=== PATIENT | female | born 1990 | race Caucasian/White ===

== ENCOUNTER 2024-12-17 10:23 | Inpatient (IN) | payer OTHER ==
[~2024-12-17] VITALS: Ht 193 cm; Wt 64.9 kg
[2024-12-17 11:13] LABS: HEMATOCRIT. 39.4 % (36.0-48.0); HEMOGLOBIN. 13.5 g/dL (12.0-16.0); MEAN CORPUSCULAR HEMOGLOBIN 26.3 pg (28.0-32.0); MEAN CORPUSCULAR HGB CONC 34.2 g/dL (31.0-37.0); MEAN CORPUSCULAR VOLUME 76.9 fL (81.0-99.0); MEAN PLATELET VOLUME 9.5 fl (7.4-10.4); PLATELET 213 x1000/uL (130-400); RED BLOOD CELL COUNT 5.12 mill/uL (4.2-5.4); RED CELL DISTRIBUTION WIDTH 13.3 % (11.6-14.6); WHITE BLOOD COUNT 15.9 x1000/uL (4.5-11.0)
[2024-12-17 11:21] LABS: CHLORIDE 100 mEq/L (98-107); POTASSIUM 3.3 mEq/L (3.5-5.1); SODIUM 134 mEq/L (136-145)
[2024-12-17 11:22] LABS: CALCIUM 9.3 mg/dL (8.7-10.4); CARBON DIOXIDE 25 mEq/L (21-32)
[2024-12-17] MEDS: SODIUM CHLORIDE 0.9% 1,000 ML IV ONE (11:22)
[2024-12-17] MEDS: METOCLOPRAMIDE HCL 10MG/2ML VIAL IV ONE (11:22)
[2024-12-17 11:25] LABS: DIFFERENTIAL COMMENT 1
[2024-12-17 11:27] LABS: CREATININE 0.7 mg/dL (0.6-1.0); GLUCOSE 130 mg/dL (70-105); UREA NITROGEN BLOOD 8 mg/dL (9-23)
[2024-12-17] MEDS: KETOROLAC 30MG/ML VIAL IV STA (11:54)
[2024-12-17 11:55] LABS: PLATELET ESTIMATE NORMAL
[2024-12-17] MEDS: PIPERACILLIN/TAZO 3.375G/50ML 50 ML IV ONE (12:20)
[2024-12-17] MEDS: SODIUM CHLORIDE 0.9% (SEPSIS BOLUS) IV ONE (12:32)
[2024-12-17] MEDS: VANCOMYCIN 1G PREMIX 200 ML IV ONE (13:24)
[2024-12-17] MEDS ORDERED: DOCUSATE SODIUM 100MG CAPSULE PO PRN (14:15)
[2024-12-17] MEDS ORDERED: CLONIDINE 0.1MG TABLET PO PRN (14:15)
[2024-12-17] MEDS ORDERED: IPRATROPIUM/ALBUTEROL 0.5-3(2.5)MG/3ML NEB NEB PRN (14:15)
[2024-12-17] MEDS ORDERED: GUAIFENESIN 200MG/10ML SUGAR FREE UDC PO PRN (14:15)
[2024-12-17] MEDS ORDERED: ONDANSETRON HCL 4MG/2ML INJ IV PRN (14:15)
[2024-12-17] MEDS ORDERED: ACETAMINOPHEN 325MG TABLET PO PRN ×2 (14:15)
[2024-12-17] MEDS ORDERED: MAGNESIUM/ALUMINUM HYDROXIDE/SIMETHICONE 30ML UDC PO PRN (14:15)
[2024-12-17] MEDS ORDERED: DIPHENHYDRAMINE 50MG/ML VIAL IV PRN (14:15)
[2024-12-17 14:38] LABS: PHOSPHORUS 2.9 mg/dL (2.5-4.9)
[2024-12-17] MEDS ORDERED: NOREPINEPHRINE 8MG/250ML PMX 250 ML IV ONE (15:06)
[2024-12-17 15:38] LABS: *AMPHETAMINES SCREEN URINE NEGATIVE (NEGATIVE); *BARBITURATES SCREEN URINE NEGATIVE (NEGATIVE); *BENZODIAZEPINES SCREEN URINE NEGATIVE (NEGATIVE); *COCAINE SCREEN URINE NEGATIVE (NEGATIVE); CANNABINOID URINE SCREEN NEGATIVE (NEGATIVE); ECSTASY MDMA SCREEN URINE NEGATIVE (NEGATIVE); METHADONE URINE SCREEN NEGATIVE (NEGATIVE); OPIATES URINE SCREEN NEGATIVE (NEGATIVE); PHENCYCLIDINE URINE SCREEN NEGATIVE (NEGATIVE)
[2024-12-17 15:40] LABS: CLARITY URINE CLEAR (CLEAR); COLOR URINE YELLOW (YELLOW); GLUCOSE URINE NEGATIVE (NEGATIVE); KETONES URINE NEGATIVE (NEGATIVE); LEUKOCYTE ESTERASE URINE NEGATIVE (NEGATIVE); NITRITE URINE NEGATIVE (NEGATIVE); OCCULT BLOOD URINE TRACE (NEGATIVE); PH URINE 5.5 (4.5-8.0); PROTEIN URINE NEGATIVE (NEGATIVE); SPECIFIC GRAVITY URINE 1.009 (1.005-1.030); UROBILINOGEN URINE 0.2 E.U./dL (0.2-1.0)
[2024-12-17 16:07] LABS: BACTERIA URINE TRACE; RBC URINE 0-2 /hpf (0-2); SQUAMOUS EPITHELIAL CELL URINE FEW /lpf (RARE/1+); WBC URINE 0-2 /hpf (0-2)
[2024-12-17 16:21] LABS: TROPONIN I HIGH SENSITIVITY 12 ng/L (3.0-34)
[2024-12-17] MEDS: SODIUM CHLORIDE 0.9% 1,000 ML IV SCH (17:28)
[2024-12-17] MEDS: NOREPINEPHRINE 8MG/250ML PMX 250 ML IV PRN (17:55)
[2024-12-17] MEDS ORDERED: CEFTRIAXONE 1GM/50ML 50 ML IV SCH (18:00)
[2024-12-17] MEDS: PANTOPRAZOLE SODIUM 40 MG/VIAL IV SCH (18:44)
[2024-12-17] MEDS: POTASSIUM CHLORIDE 20MEQ/PACKET PO NR (18:44)
[2024-12-17] MEDS: MAGNESIUM 2 G PREMIX 50 ML IV NR (18:45)
[2024-12-17 20:00] VITALS: BP 120/61; PULSE 81; RESP 16; TEMP 36.4; O2SAT 97
[2024-12-17 22:53] LABS: INFLUENZA TYPE A Presumptive Negative (Pres. Neg.); INFLUENZA TYPE B Presumptive Negative (Pres. Neg.)
[2024-12-17 22:54] LABS: RESPIRATORY SYNCYTIAL VIRUS Not Detected (Not Detectd)
[2024-12-18] VITALS (7 sets, daily range): BP systolic 98–120; BP diastolic 50–61; PULSE 64–81; RESP 16–20; TEMP 36.1–37.2; O2SAT 98–100
[2024-12-18] MEDS: VANCOMYCIN 750MG PREMIX 150 ML IV SCH ×2 (00:33→11:09)
[2024-12-18] MEDS: PIPERACILLIN/TAZO 3.375G/50ML 50 ML IV SCH (02:45)
[2024-12-18 05:27] LABS: BASOPHILS % 0.1 % (0.0-2.0); CARBON DIOXIDE 24 mEq/L (21-32); CHLORIDE 107 mEq/L (98-107); DIFFERENTIAL COMMENT 0; EOSINOPHILS % 0.6 % (0.0-5.0); HEMATOCRIT. 33.9 % (36.0-48.0); HEMOGLOBIN. 11.3 g/dL (12.0-16.0); LYMPHOCYTES % 15.3 % (20.0-50.0); MEAN CORPUSCULAR HEMOGLOBIN 26.1 pg (28.0-32.0); MEAN CORPUSCULAR HGB CONC 33.4 g/dL (31.0-37.0); MEAN CORPUSCULAR VOLUME 78.1 fL (81.0-99.0); MONOCYTES % 3.9 % (2.0-8.0); NEUTROPHILS % 80.1 % (40.0-76.0); PLATELET 203 x1000/uL (130-400); POTASSIUM 3.6 mEq/L (3.5-5.1); RED BLOOD CELL COUNT 4.34 mill/uL (4.2-5.4); RED CELL DISTRIBUTION WIDTH 13.5 % (11.6-14.6); SODIUM 140 mEq/L (136-145); WHITE BLOOD COUNT 16.7 x1000/uL (4.5-11.0)
[2024-12-18 05:28] LABS: CALCIUM 8.2 mg/dL (8.7-10.4)
[2024-12-18 05:33] LABS: CREATININE 0.5 mg/dL (0.6-1.0); GLUCOSE 81 mg/dL (70-105); TRIGLYCERIDE 75 mg/dL (0-150)
[2024-12-18 05:34] LABS: LDL CHOLESTEROL 55 mg/dL (5-100); UREA NITROGEN BLOOD 6 mg/dL (9-23)
[2024-12-18 05:35] LABS: CHOLESTEROL 114 mg/dL (<200); CREATINE KINASE MB FRACTION < 0.5 ng/mL (0.5-3.6); HDL CHOLESTEROL 44 mg/dL (>65); TROPONIN I HIGH SENSITIVITY 16 ng/L (3.0-34)
[2024-12-18 05:38] LABS: CREATINE KINASE 42 IU/L (34-145)
[2024-12-18 05:39] LABS: T4 FREE 0.97 ng/dL (0.89-1.76)
[2024-12-18] MEDS: MAGNESIUM 2 G PREMIX 50 ML IV SCH (17:20)
[2024-12-18 22:37] LABS: CREATINE KINASE 42 IU/L (34-145); CREATINE KINASE MB FRACTION < 0.5 ng/mL (0.5-3.6)
[2024-12-18 22:38] LABS: TROPONIN I HIGH SENSITIVITY 15 ng/L (3.0-34)
[2024-12-19 04:01] LABS: BASOPHILS % 0.4 % (0.0-2.0); DIFFERENTIAL COMMENT 0; EOSINOPHILS % 1.5 % (0.0-5.0); HEMOGLOBIN. 11.7 g/dL (12.0-16.0); LYMPHOCYTES % 22.4 % (20.0-50.0); MEAN CORPUSCULAR HEMOGLOBIN 25.7 pg (28.0-32.0); MEAN CORPUSCULAR HGB CONC 32.5 g/dL (31.0-37.0); MEAN PLATELET VOLUME 9.7 fl (7.4-10.4); MONOCYTES % 3.9 % (2.0-8.0); NEUTROPHILS % 71.8 % (40.0-76.0); PLATELET 254 x1000/uL (130-400); RED BLOOD CELL COUNT 4.56 mill/uL (4.2-5.4); RED CELL DISTRIBUTION WIDTH 13.6 % (11.6-14.6)
[2024-12-19 04:24] LABS: CALCIUM 8.8 mg/dL (8.7-10.4); CARBON DIOXIDE 25 mEq/L (21-32); CHLORIDE 105 mEq/L (98-107); POTASSIUM 3.6 mEq/L (3.5-5.1); SODIUM 137 mEq/L (136-145)
[2024-12-19 04:29] LABS: CREATININE 0.7 mg/dL (0.6-1.0); GLUCOSE 121 mg/dL (70-105)
[2024-12-19 04:30] LABS: UREA NITROGEN BLOOD 10 mg/dL (9-23)
[2024-12-19 08:00] VITALS: BP 118/69; PULSE 63; RESP 20; TEMP 36.6; O2SAT 100
[2024-12-19 12:00] VITALS: BP 116/72; PULSE 68; RESP 18; TEMP 36.8; O2SAT 99
[2024-12-19 12:18] VITALS: BP 118/64; PULSE 72; TEMP 97.9; O2SAT 99
[2024-12-19] MEDS ORDERED: AMOX1TAB15 MT (12:50)
== END 2024-12-19 13:30 | disposition home or self-care (01) | DRG 872 ==
LOC: ER 10:23 → 8WST 13:51 → EDBEDREQTM 13:52 → EDBEDREQ 13:52 → EDBEDREQSVC 15:13 → ENRESERV 21:54
PROVIDERS: ADMIT Internal Medicine; ATTEND Internal Medicine
DX: A41.9 Sepsis, unspecified organism (principal); R57.9 Shock, unspecified; R65.20 Severe sepsis without septic shock; Z20.822 Contact with and (suspected) exposure to COVID-19; E86.1 Hypovolemia; E87.6 Hypokalemia; E83.42 Hypomagnesemia; R07.89 Other chest pain; B34.9 Viral infection, unspecified; K59.00 Constipation, unspecified; Z79.899 Other long term (current) drug therapy
CPT/HCPCS: 36415; 71045; 80048; 80061; 80202; 80305; 81003; 82533; 82550; 82553; 83036; 83605; 83735; 84100; 84145; 84439; 84443; 84484; 85025; 87420; 87426; 87804; 99285; A4606; J1885; J2470; J2543; J2765; J3370; J3475; J3490; J7030